=== PATIENT | male | born 1975 | race Caucasian/White ===

== ENCOUNTER 2016-05-27 08:57 | Emergency (ER) | payer BC ==
[~2016-05-27] VITALS: Ht 180.3 cm; Wt 68.0 kg
[~2016-05-27 08:57] MED LIST: OMEP20CA10
[2016-05-27 10:50] VITALS: BP 125/89
== END 2016-05-27 12:02 | disposition home or self-care (01) ==
LOC: ER 08:59
DX: R10.84 Generalized abdominal pain (principal)
CPT/HCPCS: 74022; 99284; A4606; Z7610

== ENCOUNTER 2016-07-29 21:03 | Emergency (ER) | payer BC ==
--- NOTE | 2016-07-29 21:12 | NUR ---
Called for triage, no answer fr [facility].
--- NOTE | 2016-07-29 21:22 | NUR ---
called for triage no response.
--- NOTE | 2016-07-29 21:37 | NUR ---
called no response, lwbt
[2016-07-30] MEDS ORDERED: IVAB5TAB PO (06:39)
== END 2016-07-29 21:45 | disposition left against medical advice (07) ==
LOC: ER 21:06
DX: Z53.21 Procedure and treatment not carried out due to patient leaving prior to being seen by health care provider (principal)

== ENCOUNTER 2016-07-30 06:27 | Emergency (ER) | payer BC ==
[~2016-07-30] VITALS: Ht 180.3 cm; Wt 63.5 kg
--- NOTE | 2016-07-30 06:35 | NUR ---
To bed 6 a 41 yo male bibself reporting "I have been having really bad adrenal fatigue." Per patient, he had difficulty moving and getting up last night. Patient is aaox4, Breathing even and unlabored. No s/s of acute distress. Skin warm and dry to touch. Gowned. Cardiac monitoring on. Safety measures initiated. Awaiting for er md paz.
[2016-07-30] MEDS ORDERED: IVAB5TAB PO (06:39)
--- NOTE | 2016-07-30 06:40 | NUR ---
Dr Dent at bedside for eval.
[2016-07-30] MEDS ORDERED: IV SET PRIMARY 1 EA INFUS.SET MC ONE (06:51)
[2016-07-30] MEDS ORDERED: IV NS 0.9% 1,000 ML ONE (06:51)
--- NOTE | 2016-07-30 07:00 | NUR ---
started a saline lock 20g on the right forearm, blood drawn and sent to lab.
[2016-07-30] MEDS: IV NS 0.9% 1,000 ML BAG IV ONE (07:06)
[2016-07-30 07:47] LABS: APPEARANCE,URINE CLEAR (CLEAR); BILIRUBIN,URINE NEGATIVE (NEGATIVE); BLOOD, URINE TRACE-INTA Ery/uL (NEGATIVE); COLOR,URINE OTHER (YELLOW); KETONES,URINE NEGATIVE (NEGATIVE); LEUKOCYTE ESTERASE ,URINE NEGATIVE (NEGATIVE); NITRITE, URINE NEGATIVE (NEGATIVE); PROTEIN,URINE NEGATIVE (NEGATIVE); UGLUCOSE NEGATIVE (NEGATIVE); UROBILINOGEN,URINE 0.2 EU/dL (0.2)
[2016-07-30 07:47] LABS: BASOPHILS % (AUTO) 0.3 % (0.0-2.0); EOSINOPHILS # (AUTO) 0.1 /CMM (0.0-0.7); EOSINOPHILS % (AUTO) 1.1 % (0.0-6.0); HEMATOCRIT 46 % (39-51); HEMOGLOBIN 15.9 g/dL (13.5-17.5); LYMPHOCYTES # (AUTO) 2.3 /CMM (0.8-4.8); LYMPHOCYTES % (AUTO) 31.9 % (20.0-44.0); MEAN CORPUSCULAR HEMOGLOBIN 31 PG (26.0-33.0); MEAN CORPUSCULAR HGB CONC 35 g/dl (31.0-36.0); MEAN CORPUSCULAR VOLUME 90 fL (80-96); MONOCYTES # (AUTO) 0.5 /CMM (0.1-1.30); MONOCYTES % (AUTO) 7.1 % (2.0-12.0); NEUTROPHILS # (AUTO) 4.2 /CMM (1.8-8.9); NEUTROPHILS % (AUTO) 59.6 % (43.0-81.0); PLATELET COUNT (AUTO) 188 /CMM (150-450); RDW COEFFICIENT OF VARIATION 12.9 (11.5-15.0); RED BLOOD CELL COUNT(AUTO) 5.09 MIL/uL (4.5-6.0); WHITE BLOOD COUNT (AUTO) 7.1 K/uL (4.3-11.0)
[2016-07-30 07:58] LABS: ADD URINE CULTURE NO; BACTERIA,URINE None seen /HPF (None Seen); RBC,URINE 0-2 /HPF (0-2); SQUAMOUS EPITHELIAL CELL,UR Few /HPF (None Seen); WBC,URINE NONE SEEN /HPF (0-3)
[2016-07-30 08:01] LABS: CALCIUM, SERUM 9.6 mg/dL (8.5-10.1); CREATININE 1.1 mg/dL (0.6-1.3); POTASSIUM 3.7 mmol/L (3.5-5.1)
[2016-07-30 08:07] LABS: ALBUMIN 4.4 g/dL (3.4-5.0); BILIRUBIN,DIRECT 0.1 mg/dL (0.0-0.2); BILIRUBIN,TOTAL 0.7 mg/dL (0.2-1.0); TOTAL PROTEIN, SERUM 7.7 g/dL (6.4-8.2)
--- NOTE | 2016-07-30 08:27 | NUR ---
PT. VERBALIZED UNDERSTANDING OF AFTERCARE INSTRUCTIONS.Patient discharged to home in stable condition. Written and verbal after care instructions given. Patient verbalizes understanding of instruction.
[2016-07-30 08:28] VITALS: BP 116/74
== END 2016-07-30 08:29 | disposition home or self-care (01) ==
LOC: ER 06:30
DX: R53.1 Weakness (principal); K44.9 Diaphragmatic hernia without obstruction or gangrene; R53.83 Other fatigue
CPT/HCPCS: 36415; 80048; 80076; 81001; 83690; 84484; 85025; 93005; 96360; 99285; A4606; J7030; Z7610; 81000-TC

== ENCOUNTER 2017-07-17 06:26 | Emergency (ER) | payer SELFPAY ==
[~2017-07-17] VITALS: Ht 175.3 cm; Wt 72.6 kg
[~2017-07-17 06:26] MED LIST changes: +IVAB5TAB PO; -OMEP20CA10
--- NOTE | 2017-07-17 06:45 | NUR ---
PT BB SELF FROM HOME WITH C/O OF INTERMITTENT CP [id number] TODAY FOR THE PAST 2 MONTHS. PT DENIES N/V. SKIN WNL. PT IS AAOX4. RESP EVEN AND UNLABORED. NO S/S OF ACUTE DISTRESS NOTED. PT GOWNED AND PLACED ON MONITOR AND POX. PT SAFETY AND COMFORT MEASURES IN PLACE. AWAITING MD FOR EVAL
[2017-07-17] MEDS ORDERED: IV NS 0.9% 500 ML BAG IV ONE (07:00)
[2017-07-17 07:27] LABS: BASOPHILS % (AUTO) 0.5 % (0.0-2.0); EOSINOPHILS # (AUTO) 0.1 /CMM (0.0-0.7); EOSINOPHILS % (AUTO) 1.3 % (0.0-6.0); HEMATOCRIT 41 % (39-51); HEMOGLOBIN 14.4 g/dL (13.5-17.5); LYMPHOCYTES # (AUTO) 2.4 /CMM (0.8-4.8); LYMPHOCYTES % (AUTO) 38.3 % (20.0-44.0); MEAN CORPUSCULAR HEMOGLOBIN 32 PG (26.0-33.0); MEAN CORPUSCULAR HGB CONC 35 g/dl (31.0-36.0); MEAN CORPUSCULAR VOLUME 90 fL (80-96); MONOCYTES # (AUTO) 0.4 /CMM (0.1-1.30); MONOCYTES % (AUTO) 6.1 % (2.0-12.0); NEUTROPHILS # (AUTO) 3.4 /CMM (1.8-8.9); NEUTROPHILS % (AUTO) 53.8 % (43.0-81.0); PLATELET COUNT (AUTO) 199 /CMM (150-450); RDW COEFFICIENT OF VARIATION 13.5 (11.5-15.0); RED BLOOD CELL COUNT(AUTO) 4.56 MIL/uL (4.5-6.0); WHITE BLOOD COUNT (AUTO) 6.3 K/uL (4.3-11.0)
[2017-07-17 07:37] LABS: CALCIUM, SERUM 8.8 mg/dL (8.5-10.1); CARBON DIOXIDE 28 mmol/L (21-32); CHLORIDE 105 mmol/L (98-107); GLUCOSE 96 mg/dL (74-106); POTASSIUM 3.7 mmol/L (3.5-5.1); SODIUM SERUM 140 mmol/L (136-145); UREA NITROGEN, BLOOD 16 mg/dL (7-18)
[2017-07-17 07:47] LABS: TROPONIN I < 0.017 ng/mL (0.00-0.056)
[2017-07-17 08:13] VITALS: BP 124/80
--- NOTE | 2017-07-17 08:14 | NUR ---
Patient discharged to home in stable condition. Written and verbal after care instructions given. Patient verbalizes understanding of instruction.
== END 2017-07-17 08:14 | disposition home or self-care (01) ==
LOC: ER 06:27
DX: R07.9 Chest pain, unspecified (principal); G89.29 Other chronic pain; K44.9 Diaphragmatic hernia without obstruction or gangrene
CPT/HCPCS: 36415; 71045-TC; 80048-TC; 84484-TC; 85025-TC; A4606; J7040; Z7610

== ENCOUNTER 2017-10-14 09:55 | Emergency (ER) | payer BC ==
[~2017-10-14] VITALS: Ht 182.9 cm; Wt 79.4 kg
--- NOTE | 2017-10-14 10:05 | NUR ---
PRESENTS TO ER C/O VERTIGO, NAUSEA, HEADACHE x 3 DAYS, WORSE TODAY. A/OX 4. BREATHING EVEN AND UNLABORED. NO SOB, NAD, VITALS STABLE. SAFETY AND COMFORT MEASURES IN PLACE. AWAITING MD ORDERS.
--- NOTE | 2017-10-14 10:39 | NUR ---
PATIENT TAKEN TO CT VIA STRETCHER.
[2017-10-14] MEDS ORDERED: ONDANSETRON HCL/PF 4 MG/2 ML VIAL ONE (10:45)
--- NOTE | 2017-10-14 10:45 | NUR ---
PATIENT RETURNED FROM CT IN STABLE CONDITION.
[2017-10-14] MEDS ORDERED: LORAZEPAM INJ 2 MG/ML VIAL ONE (10:46)
--- NOTE | 2017-10-14 10:50 | NUR ---
PATIENT REFUSED IV INSERTION, IV FLUIDS, IV ATIVAN, AND IV ZOFRAN. SENIOR ATTORNEY AT BEDSIDE FOR BLOOD DRAW, PATIENT DOES AGREE TO THIS.
[2017-10-14 10:56] LABS: BASOPHILS % (AUTO) 0.3 % (0.0-2.0); EOSINOPHILS % (AUTO) 0.9 % (0.0-6.0); HEMATOCRIT 44 % (39-51); HEMOGLOBIN 15.4 g/dL (13.5-17.5); LYMPHOCYTES # (AUTO) 1.7 /CMM (0.8-4.8); LYMPHOCYTES % (AUTO) 24.4 % (20.0-44.0); MEAN CORPUSCULAR HGB CONC 35 g/dl (31.0-36.0); MEAN CORPUSCULAR VOLUME 89 fL (80-96); MONOCYTES # (AUTO) 0.4 /CMM (0.1-1.30); MONOCYTES % (AUTO) 6.2 % (2.0-12.0); NEUTROPHILS # (AUTO) 4.7 /CMM (1.8-8.9); NEUTROPHILS % (AUTO) 68.2 % (43.0-81.0); PLATELET COUNT (AUTO) 202 /CMM (150-450); RDW COEFFICIENT OF VARIATION 11.9 (11.5-15.0); RED BLOOD CELL COUNT(AUTO) 4.92 MIL/uL (4.5-6.0); WHITE BLOOD COUNT (AUTO) 6.9 K/uL (4.3-11.0)
[2017-10-14] MEDS ORDERED: LORAZEPAM INJ 2 MG/ML VIAL IV ONE (11:00)
[2017-10-14] MEDS ORDERED: ONDANSETRON HCL/PF 4 MG/2 ML VIAL IVP ONE (11:00)
[2017-10-14] MEDS ORDERED: IV NS 0.9% 1,000 ML BAG IV ONE (11:00)
[2017-10-14 11:03] LABS: CALCIUM, SERUM 9.4 mg/dL (8.5-10.1); CARBON DIOXIDE 30 mmol/L (21-32); CHLORIDE 105 mmol/L (98-107); CREATININE 1.1 mg/dL (0.6-1.3); GLUCOSE 99 mg/dL (74-106); POTASSIUM 4.4 mmol/L (3.5-5.1); SODIUM SERUM 139 mmol/L (136-145); UREA NITROGEN, BLOOD 16 mg/dL (7-18)
[2017-10-14 11:09] LABS: ALANINE AMINOTRANSFERASE 67 U/L (12-78); ALBUMIN 4.1 g/dL (3.4-5.0); ALKALINE PHOSPHATASE 94 U/L (46-116); ASPARTATE AMINOTRANSFERASE 28 U/L (15-37); BILIRUBIN,DIRECT 0.2 mg/dL (0.0-0.2); BILIRUBIN,TOTAL 0.7 mg/dL (0.2-1.0); TOTAL PROTEIN, SERUM 7.6 g/dL (6.4-8.2)
[2017-10-14 11:11] LABS: TROPONIN I < 0.017 ng/mL (0.00-0.056)
[2017-10-14 11:44] VITALS: BP 128/82
--- NOTE | 2017-10-14 11:47 | NUR ---
Patient discharged to home in stable condition. Written and verbal after care instructions given. Patient verbalizes understanding of instruction.
== END 2017-10-14 11:40 | disposition home or self-care (01) ==
LOC: ER 09:57
DX: R42 Dizziness and giddiness (principal); I10 Essential (primary) hypertension; R79.1 Abnormal coagulation profile
CPT/HCPCS: 36415; 70450-TC; 71045-TC; 80048-TC; 80076-TC; 84484-TC; 85025-TC; 85730-TC; A4606; J2060; J2405; J7030; Z7610

== ENCOUNTER 2019-08-27 01:27 | Emergency (ER) | payer BC ==
[~2019-08-27] VITALS: Ht 180.3 cm; Wt 83.9 kg
--- NOTE | 2019-08-27 01:30 | NUR ---
TO ER BED 16 AMBULATORY C/O RLQ ABD PAIN RADIATING TO BACK X1 WEEK, NAUSEA. PT AAOX4 NO ACUTE DISTRESS NOTED, RESP EVEN AND UNLABORED. PENDING ER MD JACKSON.
--- NOTE | 2019-08-27 02:15 | NUR ---
IV LINE ESTABLISHED LAC 20 G
--- NOTE | 2019-08-27 02:23 | NUR ---
URINE SAMPLE COLLECTED AND SENT TO LAB.
--- NOTE | 2019-08-27 02:23 | NUR ---
BLOOD COLLECTED AND SENT TO LAB
[2019-08-27] MEDS ORDERED: IV NS 0.9% 1,000 ML BAG IV ONE (02:30)
[2019-08-27] MEDS ORDERED: IOHEXOL-300 100 ML VIAL IV ONE (02:51)
[2019-08-27] MEDS ORDERED: IV NS 0.9% 250 ML IV ONE (02:52)
[2019-08-27 02:54] LABS: BASOPHILS % (AUTO) 0.5 % (0.0-2.0); EOSINOPHILS % (AUTO) 1.1 % (0.0-6.0); HEMATOCRIT 46 % (39-51); HEMOGLOBIN 15.7 g/dL (13.5-17.5); LYMPHOCYTES # (AUTO) 3.2 /CMM (0.8-4.8); LYMPHOCYTES % (AUTO) 36.7 % (20.0-44.0); MEAN CORPUSCULAR HGB CONC 34 g/dl (31.0-36.0); MEAN CORPUSCULAR VOLUME 91 fL (80-96); MONOCYTES # (AUTO) 0.7 /CMM (0.1-1.30); MONOCYTES % (AUTO) 8.2 % (2.0-12.0); NEUTROPHILS # (AUTO) 4.7 /CMM (1.8-8.9); NEUTROPHILS % (AUTO) 53.5 % (43.0-81.0); PLATELET COUNT (AUTO) 203 /CMM (150-450); RED BLOOD CELL COUNT(AUTO) 5.02 MIL/uL (4.5-6.0); WHITE BLOOD COUNT (AUTO) 8.8 K/uL (4.3-11.0)
[2019-08-27 03:01] LABS: CALCIUM, SERUM 9.4 mg/dL (8.5-10.1); CREATININE 1.3 mg/dL (0.6-1.3); POTASSIUM 3.6 mmol/L (3.5-5.1)
[2019-08-27 03:07] LABS: ALBUMIN 4.2 g/dL (3.4-5.0); BILIRUBIN,DIRECT 0.1 mg/dL (0.0-0.2); BILIRUBIN,TOTAL 0.6 mg/dL (0.2-1.0); TOTAL PROTEIN, SERUM 7.7 g/dL (6.4-8.2)
[2019-08-27 03:29] LABS: APPEARANCE,URINE CLEAR (CLEAR); BILIRUBIN,URINE NEGATIVE (NEGATIVE); BLOOD, URINE SMALL Ery/uL (NEGATIVE); COLOR,URINE YELLOW (YELLOW); KETONES,URINE NEGATIVE (NEGATIVE); LEUKOCYTE ESTERASE ,URINE NEGATIVE (NEGATIVE); NITRITE, URINE NEGATIVE (NEGATIVE); PH,URINE 6.5 (5.0-8.0); PROTEIN,URINE NEGATIVE (NEGATIVE); UGLUCOSE NEGATIVE (NEGATIVE); UROBILINOGEN,URINE 0.2 EU/dL (0.2)
[2019-08-27 03:41] LABS: BACTERIA,URINE None seen /HPF (None Seen); SQUAMOUS EPITHELIAL CELL,UR Few /HPF (None Seen); WBC,URINE 0-2 /HPF (0-3)
--- NOTE | 2019-08-27 04:02 | NUR ---
CT RESULT RECEIVED. ER MD MADE AWARE. PENDING DISPOSITION.
--- NOTE | 2019-08-27 04:23 | NUR ---
IV removed. Catheter intact and site benign. Pressure and 4x4 applied to site. No bleeding noted. Patient discharged to home in stable condition. Written and verbal after care instructions given. Patient verbalizes understanding of instruction. ambulatory with a steady gait noted. pt aaox4 no acute distress noted, resp even and unlabored.
[2019-08-27 04:25] VITALS: BP 141/69
== END 2019-08-27 04:26 | disposition home or self-care (01) ==
LOC: ER 01:31
DX: R10.84 Generalized abdominal pain (principal); R10.11 Right upper quadrant pain; I10 Essential (primary) hypertension; F41.9 Anxiety disorder, unspecified; Z98.890 Other specified postprocedural states
CPT/HCPCS: 36415; 74177; 80048; 80076; 81001; 83690; 85025; 85730; 99285; J7030; J7050; Q9967; 81000-TC